=== PATIENT | male | born 2000 | race Native Hawaiian/Other Pacific Islander ===

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

== ENCOUNTER 2022-01-11 14:47 | Emergency (ER) | payer OTHER ==
[~2022-01-11] VITALS: Ht 170.2 cm; Wt 59.9 kg
[2022-01-11 15:05] VITALS: TEMP 97.8
[2022-01-11 16:54] VITALS: BP 118/74
== END 2022-01-11 16:56 | disposition home or self-care (01) ==
LOC: ED 14:47
DX: G43.909 Migraine, unspecified, not intractable, without status migrainosus (principal)
CPT/HCPCS: 96372; 99283; J2270; J2405